=== PATIENT | female | born 1995 | race Caucasian/White ===

== ENCOUNTER 2017-07-21 05:32 | Emergency (ER) | payer OTHER ==
[2017-07-21 05:51] LABS: URINE HCG POC HCG NEGATIVE (Negative)
[2017-07-21 06:06] LABS: BILIRUBIN,URINE NEGATIVE (NEG); CLARITY,URINE CLEAR; COLOR,URINE YELLOW; GLUCOSE,URINE NEGATIVE (NEG); NITRITE,URINE NEGATIVE (NEG); PROTEIN,URINE NEGATIVE (NEG-TRACE); UROBILINOGEN,URINE 0.2 mg/dL (0.2 mg/dL)
[2017-07-21 06:17] LABS: BACTERIA,URINE FEW /HPF (0-FEW); RBC,URINE 0 /HPF (0-2); SQUAMOUS EPITHELIAL CELL,UR MANY /LPF
[2017-07-21 06:25] LABS: ADD MAN DIFF? NO
[2017-07-21] MEDS: IV NORMAL SALINE 1000ML BAG 1,000 ML IV (06:27)
[2017-07-21 06:28] LABS: BASO # 0.1 x10^3/uL (0.0-0.2); BASO % 1 % (0-3); EOS # 0.3 x10^3/uL (0.0-0.7); EOS % 2 % (0-3); HEMATOCRIT 39.5 % (36.0-47.0); HEMOGLOBIN 13.7 g/dL (12.0-15.5); LYMPH # 2.9 x10^3/uL (1.0-4.8); LYMPH % 23 % (24-48); MEAN CORPUSCULAR HEMOGLOBIN 34 pg (25-35); MEAN CORPUSCULAR HGB CONC 35 g/dL (31-37); MEAN CORPUSCULAR VOLUME 99 fL (79-100); MONO # 0.9 x10^3/uL (0.0-1.1); MONO % 8 % (0-9); NEUT # 8.4 x10^3uL (1.8-7.7); NEUT % 67 % (31-73); PLATELET COUNT 235 x10^3/uL (140-400); RED BLOOD COUNT 3.99 x10^6/uL (3.50-5.40); RED CELL DISTRIBUTION WIDTH 12.7 % (11.5-14.5); WHITE BLOOD COUNT 12.5 x10^3/uL (4.0-11.0)
[2017-07-21] MEDS: ONDANSETRON PF 4 MG/2 ML VIAL. IV (06:28)
[2017-07-21] MEDS: fentaNYL PF VIAL 100 MCG/2 ML VIAL IV (06:28)
[2017-07-21 06:39] LABS: ANION GAP 9 (6-14); BLOOD UREA NITROGEN 18 mg/dL (7-20); BUN/CREATININE RATIO 30 (6-20); CALCIUM 8.9 mg/dL (8.5-10.1); CARBON DIOXIDE 25 mmol/L (21-32); CHLORIDE 105 mmol/L (98-107); CREATININE 0.6 mg/dL (0.6-1.0); GFR 128.8; GLUCOSE 103 mg/dL (70-99); SODIUM 139 mmol/L (136-145)
[2017-07-21 06:45] LABS: ALBUMIN 3.5 g/dL (3.4-5.0); ALK PHOS 64 U/L (46-116); ALT (SGPT) 15 U/L (14-59); AST (SGOT) 13 U/L (15-37); LIPASE 97 U/L (73-393); TOTAL BILIRUBIN 0.3 mg/dL (0.2-1.0)
[2017-07-21] MEDS ORDERED: CONTRAST GIVEN MC (07:00)
[2017-07-21] MEDS: IOHEXOL 300 MG/ML 100ML VIAL. IV (07:11)
== END 2017-07-21 09:04 | disposition home or self-care (01) ==
LOC: ER 05:32
DX: N83.201 Unspecified ovarian cyst, right side (principal)
CPT/HCPCS: 36415; 74177; 76830; 76856; 80053; 81001; 81025; 83690; 85025; 87086; 96361; 96374; 96375; 99285-25; J2405; J3010; J7030; Q9967

== ENCOUNTER 2017-10-04 20:53 | Emergency (ER) | payer OTHER ==
[2017-10-04] MEDS: LIDOCAINE/EPI/TETRACAINE TOPICAL GEL 3 ML. TP (21:22)
[2017-10-04] MEDS: LIDOCAINE WITH 8.4% SOD BICARB 3 ML DISP.SYRIN. INJ (22:00)
[2017-10-04] MEDS ORDERED: NEOMY/BACITR/POLYMYXIN OINT PACKET. TP ×2 (22:23)
== END 2017-10-04 22:29 | disposition home or self-care (01) ==
LOC: ER 20:53
DX: S91.011A Laceration without foreign body, right ankle, initial encounter (principal); Z79.899 Other long term (current) drug therapy; W26.8XXA Contact with other sharp object(s), not elsewhere classified, initial encounter; Y93.89 Activity, other specified; Y92.89 Other specified places as the place of occurrence of the external cause; Y99.8 Other external cause status
CPT/HCPCS: 12001; 99283